=== PATIENT | female | born 1940 | race Caucasian/White ===

== ENCOUNTER 2016-11-01 07:28 | Observation (INO) | payer OTHER ==
[2016-11-01] MEDS ORDERED: BUPIVACAINE 0.5% 30 ML SDV ONE (07:34)
[2016-11-01 09:18] LABS: % IMMATURE GRANULYOCYTES 1.1 % (0.0-1.1); ABSOLUTE IMMATURE GRANULOCYTES 0.09 10^3/uL (0.00-0.10); ADD DIFF? NO; ADD MORPH? NO; ADD SCAN? NO; ATYPICAL LYMPHOCYTE FLAG 0 (0-99); FRAGMENT RBC FLAG 0 (0-99); HEMATOCRIT 35.2 % (38.0-47.0); HEMOGLOBIN 11.6 g/dL (12.6-16.3); LEFT SHIFT FLG 10 (0-99); LIPEMIA HEMOLYSIS FLAG 80 (0-99); MEAN CELL HEMOGLOBIN 32.4 pg (27.9-34.1); MEAN CELL VOLUME 98.3 fL (81.5-99.8); MEAN PLATELET VOLUME 10.6 fL (8.7-11.7); PLATELET CLUMPS FLAG 10 (0-99); PLATELET COUNT 338 10^3/uL (150-400); RED BLOOD CELL COUNT 3.58 10^6/uL (4.18-5.33); RED CELL DISTRIBUTION WIDTH 13.9 % (11.5-15.2)
[2016-11-01] MEDS ORDERED: LR 1,000 ML IV ONE (09:24)
[2016-11-01] MEDS ORDERED: LIDOCAINE 1% 5 ML SDV ID PRN (09:24)
[2016-11-01 09:39] LABS: ANION GAP 10 mEq/L (8-16); CALCIUM 10.2 mg/dL (8.5-10.4); CARBON DIOXIDE 21 mEq/l (22-31); CHLORIDE 111 mEq/L (97-110); CREATININE 2.2 mg/dL (0.6-1.0); GLOMERULAR FILTRATION RATE 22; GLUCOSE 92 mg/dL (70-100); SODIUM 142 mEq/L (134-144)
[2016-11-01] MEDS ORDERED: PROPOFOL 200 MG/20 ML VIAL ONE (09:41)
[2016-11-01] MEDS ORDERED: fentaNYL 100 MCG/2 ML INJ ONE (09:41)
[2016-11-01 09:42] LABS: POTASSIUM 6.4 mEq/L (3.5-5.2)
[2016-11-01] MEDS ORDERED: CEFAZOLIN 2 GM/DEXTROSE/100 ML BAG IV ONE (09:42)
[2016-11-01] MEDS ORDERED: ceFAZolin 2 GM/DEXTROSE 100 ML IV ONE (10:00)
[2016-11-01 10:27] LABS: POTASSIUM 6.4 mEq/L (3.5-5.2)
--- NOTE | 2016-11-01 10:32 | CPEKG ---
Heart Rate: 70 RR Interval: 857 P-R Interval: 140 QRSD Interval: 72 QT Interval: 380 QTC Interval: 410 P Mobile: 61 QRS Mobile: 37 T Wave Mobile: 39 EKG Severity - ABNORMAL ECG - EKG Impression: SINUS RHYTHM EKG Impression: PROBABLE LEFT ATRIAL ABNORMALITY EKG Impression: PROBABLE LEFT VENTRICULAR HYPERTROPHY EKG Impression: CONSIDER ANTERIOR INFARCT Electronically Signed By: Janel Garland 01-Nov-2016 17:07:12
[2016-11-01] MEDS ORDERED: SODIUM POLY SULF 15 GM/60 ML BOTTLE PO ONE ×2 (12:55→18:15)
[2016-11-01] MEDS ORDERED: D50W 25 GM/50 ML SYR IVP ONE (13:00)
[2016-11-01] MEDS ORDERED: NA BICARBONATE 50 MEQ/50 ML VIAL IV ONE ×2 (13:00→13:45)
[2016-11-01] MEDS ORDERED: INSULIN REGULAR HUMAN 100 UNIT/ML IVP ONE (13:49)
[2016-11-01] MEDS ORDERED: ONDANSETRON 4 MG/2 ML VIAL IVP PRN (13:50)
[2016-11-01] MEDS ORDERED: ALBUTEROL 60 PUFFS/8 GM MDI IH PRN (13:50)
[2016-11-01] MEDS ORDERED: ONDANSETRON DISINTEGRATING 4 MG TAB PO PRN (13:50)
[2016-11-01] MEDS ORDERED: ALBUTEROL 3 ML DEYVIAL IH PRN (13:50)
[2016-11-01] MEDS ORDERED: HYDROCODONE/APAP 5/325 TAB PO PRN (13:50)
[2016-11-01] MEDS ORDERED: ACETAMINOPHEN 325 MG TAB PO PRN (13:50)
[2016-11-01 15:20] LABS: INR 1.01 (0.83-1.16); PROTIME(PATIENT) 13.2 SEC (12.0-15.0)
[2016-11-01 15:25] LABS: ANION GAP 11 mEq/L (8-16); CALCIUM 10.1 mg/dL (8.5-10.4); CARBON DIOXIDE 22 mEq/l (22-31); CHLORIDE 110 mEq/L (97-110); GLOMERULAR FILTRATION RATE 24; GLUCOSE 185 mg/dL (70-100); MAGNESIUM 1.7 mg/dL (1.6-2.3); POTASSIUM 5.2 mEq/L (3.5-5.2); SODIUM 143 mEq/L (134-144)
[2016-11-01] MEDS ORDERED: SODIUM POLYSTYRENE SULF 454 GM POWDER PO ONE (18:03)
[2016-11-01] MEDS ORDERED: MAGNESIUM SULF 2 GM/WATER 50 ML IV ONE (18:03)
--- NOTE | 2016-11-01 18:17 | SOAPPROG ---
SOAP Progress Note Assessment/Plan: Assessment:Plan: Hyperkalemia Pre-op K = 6.4. Confirmed. Now down to 5.2 after IV Rx. Corrected easily with bicarb 100 mEq and D50 one amp. Did not give insulin or calcium or Kionex Underlying advance CKD K balance likely affected by chronic, frequent loose stool. This can result in bicarbonate wasting and K imbalance This could be related to mag oxide use or a side effect from her sertraline Will stop mag oxide Will replace Mag IV while in hospital Will consider use of different magnesium supplement like slomag once we see her response to the discontinuation of mag oxide If no better with the elimination of the magnesium, will need to change from sertaline to another type of SSRI. Loose stool and fecal incontinence is not uncommon with sertraline. Will give kionex powder tonight to prevent recurrence of the hyperkalemia This should not worsen GI symptoms as this does not contain sorbitol like the liquid form Labs again in morning If K rebounds, will need bicarbonate IV again in morning Discussed diet. Her only high-potassium food has been potatoes. We discussed preparation methods that would ventura-out or remove potassium prior to consuming Currently on renal diet with plans for OR tomorrow. Anesthesia had ordered LR concrete mixer loader truck mounted to OR for tomorrow. This should be changed to NS as LR contains some potassium 11/01/16 18:17 Objective: Vital Signs Temp Pulse Resp BP Pulse Ox 37.1 C 75 14 182/70 H 91 L 11/01/16 15:13 11/01/16 15:13 11/01/16 15:13 11/01/16 15:13 11/01/16 15:13 Laboratory Results 11/01/16 09:05 11/01/16 15:00 10/31/16 11/01/16 11/02/16 05:59 05:59 05:59 Intake Total 800 Balance 800 PT 13.2 SEC (12.0-15.0) 11/01/16 15:00 INR 1.01 (0.83-1.16) 11/01/16 15:00 ICD10 Worksheet Patient Problems: Problems Problem Status Onset Hyperkalemia Acute - ICD10 Problem Qualifiers (1) Hyperkalemia
[2016-11-01] MEDS ORDERED: hydrALAZINE 20 MG/ML VIAL IVP PRN (18:54)
--- NOTE | 2016-11-01 19:58 | GCON ---
[f rep st] CONSULTATION NEPHROLOGY CONSULTATION REASON FOR CONSULTATION: Hyperkalemia. ASSESSMENT: 1. Hyperkalemia. 2. Frequent loose stool. 3. 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 4. Hypertension. RECOMMENDATION: 1. Treat hyperkalemia acutely with 1 amp of D50 and in sodium bicarbonate 100 mEq IV. 2. Recheck potassium in 1 hour. 3. Keep n.p.o. in anticipation of surgery. 4. Discontinue magnesium oxide as this may be contributing to the patient's loose stool. 5. If patient has surgery rescheduled, plan to give Kionex tonight to ensure the potassium does not rebound. 6. Consider change from sertraline to another SSRI if her loose stools persist. HISTORY: The patient is a 76-year-old woman with stage 4/stage 5 chronic kidney disease who was scheduled to get a peritoneal dialysis catheter placed today. Her preoperative potassium was 6.4, and therefore the surgery has been postponed. I was called to help with the management of her hyperkalemia. I requested that the patient be given D50 as well as 2 amps of sodium bicarbonate. Followup labs have shown her potassium came down nicely to 5.2. The patient has a history of hyperkalemia with elevated reading in August of this year. She has been effectively controlled with dietary restriction. She denies recent intake of significant high potassium foods with the exception of potatoes. Her diet is somewhat affected by her use of Meals on Wheels, and so her food choices are not always her own. She does describe having loose stools for the last 7-8 months. She has 3-4 loose bowel movements every day. She is on bother magnesium oxide and sertraline. She has had no recent changes in her medications. She had a recent hospitalization down at [facility] for symptoms of seizure. With this, her blood pressure medications were reduced. She has history of status epilepticus back in July 2015 after placement of a left internal carotid artery stent in [place]. She had been discharged to home with plans to undergo a RLE stent when she was found unresponsive by a friend. She was flown to [facility] at that time and was found to be in status. She had meningitis. Her course was complicated by [place], IKRT, CHF. She has issues with short-term memory loss. PAST MEDICAL HISTORY: 1. Atrophic Right kidney. 2. Hypertension since 1999 3. Chronic kidney disease since 1999, stage 4/5 4. Anemia. 5. COPD. 6. Depression. 7. Hyperlipidemia. 8. Hypothyroidism. 9. Low magnesium. 10. Seizure disorder 11. PVD with occluded Left common iliac, carotid and RLE disease 12. CAD with history of [place] 13.. CHF 14. Hyperkalemia 15. Anemia 16. GERD 17. Abnormal breast biopsy, treated by Dr. Elena with tamoxifen 18. Diverticulitis 2005 19. Paroxysmal Afib 20. History of meningitis 21.. History of KIRT 07/2015 associated with episode of status epilepticus PAST SURGICAL HISTORY: Tubal Tonsils and adenoids Appendectomy D&C KEVAN BSO Right Knee x 4 Left Knee Left ICA Stent OUTPATIENT MEDICATIONS: Amlodipine 5 mg daily, Eliquis 2.5 mg twice daily, Coreg 12.5 mg twice daily, vitamin D3 5000 international units daily, Plavix 75 mg daily, docusate twice daily, Advair 2 twice daily, Keppra 750 mg twice daily , Synthroid 100 mcg daily, magnesium oxide twice daily, omeprazole 20 mg daily, Zoloft 50 mg daily, and simvastatin 5 mg daily. ALLERGIES: Erythromycin, theophylline, lovastatin, tetracycline, pravastatin. FAMILY AND SOCIAL HISTORY: Noncontributory. 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 Former smoker REVIEW OF SYSTEMS: Negative except for that including the History of Present Illness. PHYSICAL EXAMINATION: VITAL SIGNS: Temp 37.1, heart rate 75, respirations 14, blood pressure 182/70, saturating 91% on room air. APPEARANCE: No apparent distress. She is a thin elderly female, appearing her stated age in no apparent distress. Sitting up in bed. HEENT: Atraumatic, normocephalic. NECK : Unremarkable. She has a 2/6 murmur, transmitted into both carotids bilaterally. HEART: Regular with no rubs or gallops. LUNGS: Completely clear to auscultation. ABDOMINAL: Positive bowel sounds. Soft, nontender. No rebound or guarding. No obvious bruits noted. EXTREMITIES: Free of edema. SKIN: Free of rashes. LABORATORY DATA: A BUN of 50 and a creatinine of 2. Potassium down to 5.2 as described. ASSESSMENT: Hyperkalemia. The patient describes frequent loose stools. She has advanced chronic kidney disease. This combination of things may have resulted in her developing a potassium imbalance. She corrected quickly with the administration of 2 amps of bicarbonate. I suspect her gastrointestinal symptoms have resulted in chronic bicarbonate losses and may be contributing to this problem. Her use of magnesium oxide, docusate as well as Zoloft may be contributing to her loose stool. I will start with discontinuation of her magnesium oxide. It does not seem like she needs docusate at the present time either, but that currently is not on her med list so I will not make adjustments to that. Zoloft (sertraline) does carry the risk of developing loose stool as well as fecal incontinence. She has been on this nursing home. Nonetheless, this could be causing her symptoms. If her gastrointestinal symptoms do not improve with discontinuation of the magnesium supplementation, then I would consider changing her to a different SSRI. If her gastrointestinal symptoms do improve with discontinuation of the magnesium oxide and if she continues to have indications for ongoing magnesium supplementation, then one could consider using a different magnesium supplementation such as Slow-Mag that might be more tolerable. She has had high potassium. She may rebound. If she rebounds in the morning, this could further disrupt her planned surgery. I will give her some powdered Kionex tonight as this may help prevent this issue. Kionex powder may also have a somewhat constipatory effect which might also be beneficial for this patient. I would not use Kionex liquid due to the sorbitol contained in this compound which would only induce more problems with her GI system. Her magnesium supplement is going to be discontinued. We will give her IV magnesium tonight. We will deal with her chronic low magnesium issues as an outpatient. Again, if she is not having loose stools this may also help promote normal electrolyte balance. Lactated Ringer's was ordered full fashioned garment knitter to the operating room. Even though, this contains a trivial amount of potassium, I would simply use normal saline for patients with chronic kidney disease or end-stage renal disease when undergoing surgical procedures. I changed her fluid orders to normal saline because of this. She is on a low-potassium diet. She does not describe eating much in the way of high potassium foods with the exception of potatoes. We discussed preparation methods that can lead to the potassium and remove it from foods like potatoes prior to consumption. This is discussed with her and her son. She has been n.p.o. since early this morning. I suspect that is contributing to her current high blood pressure. We will see how she responds to resumption of those medications overnight. She has experienced worsening renal function when her BP has been over-corrected in the past. This is not expected given the nature and severity of her vascular disease. Goal BP's were discussed with the patient and her son Other dietary issues were discussed in detail. Her son is working with her to make sure she has good nutritional status going into her need for dialysis. Copy requested to: Dr. Kathi Amaya /[id number]/MODL MTDD
[2016-11-01] MEDS: levETIRAcetam 250 MG TAB PO SCH (20:11)
[2016-11-01] MEDS: amLODIPine BESYLATE 5 MG TAB PO SCH (20:12)
[2016-11-01] MEDS: CARVEDILOL 6.25 MG TAB PO SCH (20:13)
[2016-11-01] MEDS: DOCUSATE SODIUM 100 MG CAP PO SCH (20:18)
[2016-11-01] MEDS: SIMVASTATIN 5 MG PO SCH (20:18)
[2016-11-01] MEDS ORDERED: MAGNESIUM OXIDE 400 MG TAB PO SCH (21:00)
[2016-11-01] MEDS: FLUTICASONE/SALMETER 250/50MCG DISKUS IH SCH (22:46)
[2016-11-02] MEDS: LEVOTHYROXINE 100 MCG TAB PO SCH (04:59)
[2016-11-02 05:31] LABS: ANION GAP 8 mEq/L (8-16); CALCIUM 9.5 mg/dL (8.5-10.4); CARBON DIOXIDE 24 mEq/l (22-31); CHLORIDE 108 mEq/L (97-110); GLOMERULAR FILTRATION RATE 24; GLUCOSE 89 mg/dL (70-100); POTASSIUM 4.7 mEq/L (3.5-5.2); SODIUM 140 mEq/L (134-144)
[2016-11-02] MEDS: FLUTICASONE/SALMETER 250/50MCG DISKUS IH SCH (09:20)
[2016-11-02] MEDS: PANTOPRAZOLE SODIUM 40 MG TAB PO SCH (09:25)
[2016-11-02] MEDS: levETIRAcetam 250 MG TAB PO SCH ×2 (09:25→21:39)
[2016-11-02] MEDS: SERTRALINE HCL 50 MG TAB PO SCH (09:25)
[2016-11-02] MEDS: amLODIPine BESYLATE 5 MG TAB PO SCH (09:26)
[2016-11-02] MEDS: CARVEDILOL 6.25 MG TAB PO SCH ×2 (09:26→21:40)
[2016-11-02] MEDS ORDERED: FLUTICASONE/SALMETER 250/50MCG DISKUS IH PRN (09:36)
[2016-11-02] MEDS: CHOLECALCIFEROL VIT D3 2,000 UNITS TAB/CAP PO SCH (10:00)
[2016-11-02] MEDS: DOCUSATE SODIUM 100 MG CAP PO SCH ×2 (10:01→21:42)
[2016-11-02] MEDS: SIMVASTATIN 5 MG PO SCH (10:01)
--- NOTE | 2016-11-02 10:56 | GHP ---
[f rep st] HISTORY AND PHYSICAL DATE OF ADMISSION: 11/01/2016 CHIEF COMPLAINT: Hyperkalemia. HISTORY OF PRESENT ILLNESS: A 76-year-old female who was noted to be hyperkalemic at the time of a planned operation to place a peritoneal dialysis catheter. Because of the hyperkalemia, the surgery was cancelled, and she was placed for admission. She has no complaints. Her significant recent [facility] history shows a recent hospitalization at [facility] for problems of CHF, AFib, meningitis, and pneumonia. Renal failure perhaps was a part of this diagnosis, and as a result, she was sent f or a peritoneal dialysis catheter. She has recently had no fever, chills, sweats, cough, shortness of breath, chest pain, nausea, vomiting, dizziness, weakness. PAST MEDICAL HISTORY: Positive for asthma, COPD, renal failure, hypertension, and paroxysmal atrial fibrillation, along with GERD. PAST SURGICAL HISTORY: Right knee surgery x4, left knee surgery x1. She has also had an appendecto my, laparoscopic cholecystectomy, T and A, KEVAN, and D and C. ALLERGIES: She reports numerous allergies to antibiotics, but she could not be specific. She also said she was allergic to penicillin, which was tested at [facility], and she was found n ot to be allergic to penicillin. CURRENT MEDICATIONS: Noted in the EMR and reconciled. REVIEW OF SYSTEMS: A 10-point review of systems is otherwise entirely negative, except as noted in the HPI. SOCIAL HISTORY: The patient lives alone and independently in [place]. Tobacco: She is currently not smoking cigarettes but smoked for 63 pack-years total and stopped at the age of 75 at the time o f her admission to [facility]. FAMILY HISTORY: Positive for breast cancer, with her mother passing from complications of breast ca ncer. Her father of advanced age and did not have early coronary disease. PHYSICAL EXAMINATION: GENERAL: This is an elderly, pleasant female whom I am seeing on [facility] gical valente in the PCU. VITAL SIGNS: She is significantly hypertensive, afebrile. Monitor shows sinus rhythm without ectop y, approximately 70-80. She is afebrile and has normal oxygenation. HEENT: WNL. NECK: Supple without signs of meningismus. LUNGS: Clear to P and A without wheezing or rales. HEART: Singular S1 and S2. Soft ASHLEY along the LSB can be heard. No AI is noted. ABDOMEN: Thin, normal bowel sounds, no masses, tenderness, or organomegaly. EXTREMITIES: No edema, cyanosis, clubbing. NEUROLOGIC: Symmetric and normal. LABORATORY VALUES: Significant for hyperkalemia with potassium 6.4. ECG reviewed by myself shows s inus rhythm at approximately 78 and is otherwise normal without acute changes. There are no peaked T waves noted. Because of the hyperkalemia, the patient was given D50 and insulin, along with Kayexalate. The pota ssium subsequently fell to a normal range nicely. ASSESSMENT: 1. Acute hyperkalemia of undetermined etiology. As noted, she was given D50, insulin, and Kayexala te, and the potassium fell to a normal range. There were no complications, no peaked T waves noted on her initial ECG. 2. Chronic kidney disease with end-stage renal disease. The patient is scheduled for peritoneal di alysis catheter. She will be placed n.p.o. after midnight and prepared for a probable placement of this catheter tomorrow. 3. Hypertension. She is quite significantly hypertensive, and I have restarted her usual antihyper tensive medications, along with hydralazine p.r.n. for systolic blood pressure greater than 160. Fiona moy is experiencing no chest pain or signs of CHF as a result. 4. Chronic obstructive pulmonary disease by history with a 63 pack-year history of tobacco. The pa tietamia stopped just this year at the time of her hospitalization at [facility]. Although she personally reports that she has had no problems of a regular cough, she does have a history of bronchospasm, per her medications. These medicines will be restarted. 5. History of paroxysmal atrial fibrillation from medical records at [facility]. She h as been on Eliquis anticoagulation as a result. This will be held in preparation for the placement of her diagnostic catheter and then restarted. 6. Chronic medical problems of gastroesophageal reflux disease and arthritis of her hands. PLAN: Preoperatively for placement of peritoneal dialysis catheter tomorrow, she will made n.p.o. Her potassium has been normalized, as noted above. Blood pressure will be treated in the usual [facility] ion with p.r.n. doses of hydralazine. CODE STATUS: Full. DEEP VENOUS THROMBOSIS PROPHYLAXIS: Eliquis. Full-dose anticoagulation is being held at this time, and she will be placed on SCDs temporarily. BILLING: The patient will be placed in observation status. Should she require further hospitalizat ion, she will be changed to inpatient. TIME REQUIRED FOR THIS ADMISSION: 55 minutes. Note that medical records have been requested from [facility]. /[id number]/MODL
--- NOTE | 2016-11-02 11:15 | SOAPPROG ---
SOAP Progress Note Assessment/Plan: Assessment/Plan: 76 Y F c CRF. Hyperkalemia. Surgery postponed yesterday for hyperkalemia. K+ now 4.7 this am. Appreciate renal and IM input. Cntinue NPO and to OR later today for laparoscopic PD catheter placement. Questions answered. Risks and options previously discussed. S: no complaints. O: alert, nad mmm ctab rrr abd soft, +scars 11/02/16 11:13 Objective: Vital Signs Temp Pulse Resp BP Pulse Ox 36.9 C 72 14 140/55 H 90 L 11/02/16 11:09 11/02/16 11:09 11/02/16 11:09 11/02/16 11:09 11/02/16 11:09 Laboratory Results 11/01/16 09:05 11/02/16 04:38 11/01/16 11/02/16 11/03/16 05:59 05:59 05:59 Intake Total 1200 Balance 1200 PT 13.2 SEC (12.0-15.0) 11/01/16 15:00 INR 1.01 (0.83-1.16) 11/01/16 15:00 ICD10 Worksheet Patient Problems: Problems Problem Status Onset Hyperkalemia Acute
[2016-11-02] MEDS ORDERED: NS 1,000 ML IV ONE (12:00)
--- NOTE | 2016-11-02 12:33 | SOAPPROG ---
SOAP Progress Note Assessment/Plan: Assessment: CKD 4-5 hyperkalemia improved Plan: PD cath placement today hopefully home post op follow up with Dr. Archuleta 11/02/16 12:31 Subjective: denies pain nausea vomiting cp or SOB spirits good Objective: Vital Signs Temp Pulse Resp BP Pulse Ox 36.9 C 72 14 140/55 H 90 L 11/02/16 11:09 11/02/16 11:09 11/02/16 11:09 11/02/16 11:09 11/02/16 11:09 Laboratory Results 11/01/16 09:05 11/02/16 04:38 11/01/16 11/02/16 11/03/16 05:59 05:59 05:59 Intake Total 1200 Balance 1200 PT 13.2 SEC (12.0-15.0) 11/01/16 15:00 INR 1.01 (0.83-1.16) 11/01/16 15:00 Physical Exam - Physical Exam General Appearance: alert Respiratory: No rales, No rhonchi, No wheezing Cardiac/Chest: regular rate, rhythm, No edema Abdomen: normal bowel sounds, non-tender, soft, No distended Skin: warm/dry Extremities: No swelling Neuro/Psych: alert, normal mood/affect, oriented x 3 ICD10 Worksheet Patient Problems: Problems Problem Status Onset Hyperkalemia Acute
[2016-11-02] MEDS ORDERED: LR 1,000 ML IV ONE (13:30)
[2016-11-02] MEDS ORDERED: ceFAZolin 2 GM/DEXTROSE 100 ML IV ONE (13:30)
[2016-11-02] MEDS ORDERED: LIDOCAINE 2% 5 ML SDV ONE (14:42)
[2016-11-02] MEDS ORDERED: ONDANSETRON 4 MG/2 ML VIAL ONE (14:42)
[2016-11-02] MEDS ORDERED: PROPOFOL 200 MG/20 ML VIAL ONE (14:42)
[2016-11-02] MEDS ORDERED: fentaNYL 100 MCG/2 ML INJ ONE (14:42)
[2016-11-02] MEDS ORDERED: ROCURONIUM 50 MG/5 ML VIAL ONE (14:43)
[2016-11-02] MEDS ORDERED: SUGAMMADEX SODIUM 200 MG/2 ML VIAL IVP ONE (14:43)
[2016-11-02] MEDS ORDERED: DEXAMETHASONE 4 MG/ML VIAL ONE (14:43)
[2016-11-02] MEDS ORDERED: hydrALAZINE 20 MG/ML VIAL ONE (16:23)
--- NOTE | 2016-11-02 16:47 | HOSPPROG ---
Hospitalist Progress Note Assessment/Plan: 76 yo female admitted for peritoneal dialysis catheter, found to be hyperkalemic , treated. Today received dialysis catheter and post noted to be hypertensive. -hyperkalemia: resolved -hypertension: will receive hydralazine and continue to treat -CKD: stable -h/o PAF: will restart eliquis tomorrow Subjective: no complaints Objective: Vital Signs Temp Pulse Resp BP Pulse Ox 36.6 C 76 13 152/54 H 95 11/02/16 16:07 11/02/16 16:07 11/02/16 16:40 11/02/16 16:39 11/02/16 16:39 Laboratory Results 11/01/16 09:05 11/02/16 04:38 11/01/16 11/02/16 11/03/16 05:59 05:59 05:59 Intake Total 1200 400 Output Total 10 Balance 1200 390 PT 13.2 SEC (12.0-15.0) 11/01/16 15:00 INR 1.01 (0.83-1.16) 11/01/16 15:00 - Time Spent With Patient Time Spent with Patient: greater than 35 minutes Time Spent with Patient: Greater than 35 minutes spent on this patients care, greater than 50% of time spent counseling, educating, and coordinating care regarding the above mentioned plan. - Pending Discharge Pending Discharge Within 24 Hours: Yes Pending Discharge Date: 11/03/16 Pending Discharge Time: 11:00 - Physical Exam Constitutional: no apparent distress Eyes: PERRL Ears, Nose, Mouth, Throat: moist mucous membranes, hearing normal Cardiovascular: regular rate and rhythym, no murmur, rub, or gallop Respiratory: no respiratory distress, no rales or rhonchi, clear to auscultation Gastrointestinal: normoactive bowel sounds, soft, non-tender abdomen, no palpable masses Skin: warm Musculoskeletal: full muscle strength Neurologic: AAOx3, CN II-XII Intact Psychiatric: interacting appropriately ICD10 Worksheet Patient Problems: Problems Problem Status Onset Hyperkalemia Acute
--- NOTE | 2016-11-02 17:34 | POSTOPPROG ---
Post Op Note Date of Operation: 11/02/16 Surgeon: Felix Amaya Foot Miter Operator: Joni Saenz Anesthesiologist: Dr Gómez Anesthesia: GET(General Endotracheal) Pre-op Diagnosis: renal failure Post-op Diagnosis: same Indication: renal failure Procedure: lap PD cath placement Inf/Abcess present in the surg proc area at time of surgery?: No Depth: Organ Space EBL: Minimal
[2016-11-02] MEDS: ACETAMINOPHEN/CODEINE 300/30MG TAB PO PRN (18:02)
[2016-11-03] MEDS: LEVOTHYROXINE 100 MCG TAB PO SCH (05:47)
[2016-11-03 07:31] VITALS: O2SAT 90
--- NOTE | 2016-11-03 08:49 | SOAPPROG ---
SOAP Progress Note Assessment/Plan: Assessment: VS STABLE/ AFEBRILE/ WOUND OK/ NAUSEA RESOLVED/ ABD SOFT WITH BS Plan:ADVANCE DIET AND HOME IF TOLERATED 11/03/16 08:48 Objective: Vital Signs Temp Pulse Resp BP Pulse Ox 36.9 C 75 18 151/59 H 90 L 11/03/16 07:30 11/03/16 07:30 11/03/16 07:30 11/03/16 07:30 11/03/16 07:30 Laboratory Results 11/01/16 09:05 11/02/16 04:38 11/02/16 11/03/16 11/04/16 05:59 05:59 05:59 Intake Total 1200 600 Output Total 10 Balance 1200 590 PT 13.2 SEC (12.0-15.0) 11/01/16 15:00 INR 1.01 (0.83-1.16) 11/01/16 15:00 ICD10 Worksheet Patient Problems: Problems Problem Status Onset Hyperkalemia Acute
[2016-11-03] MEDS ORDERED: amLODIPine BESYLATE 5 MG TAB PO SCH ×2 (09:00→09:45)
--- NOTE | 2016-11-03 09:06 | SOAPPROG ---
SOAP Progress Note Assessment/Plan: Assessment:Plan: Hyperkalemia-resolved GI-loose stools resolved -keep off Mag oxide -consider alternative supplement as outpatient if she remains symptom free CKD-stable Anemia-follow s/p PD catheter-per Dr. Amaya Dispo-likely home today 11/03/16 09:04 Subjective: better overnite Objective: Vital Signs Temp Pulse Resp BP Pulse Ox 36.9 C 75 18 151/59 H 90 L 11/03/16 07:30 11/03/16 07:30 11/03/16 07:30 11/03/16 07:30 11/03/16 07:30 Laboratory Results 11/01/16 09:05 11/02/16 04:38 11/02/16 11/03/16 11/04/16 05:59 05:59 05:59 Intake Total 1200 600 Output Total 10 Balance 1200 590 PT 13.2 SEC (12.0-15.0) 11/01/16 15:00 INR 1.01 (0.83-1.16) 11/01/16 15:00 Physical Exam - Physical Exam General Appearance: alert, no apparent distress, thin EENT: normal ENT inspection Neck: normal inspection Respiratory: lungs clear, normal breath sounds, No respiratory distress Cardiac/Chest: regular rate, rhythm, systolic murmur Abdomen: normal bowel sounds, other (PD catheter unremarkable) Extremities: No swelling ICD10 Worksheet Patient Problems: Problems Problem Status Onset Hyperkalemia Acute - ICD10 Problem Qualifiers (1) Hyperkalemia
[2016-11-03 10:03] LABS: ANION GAP 10 mEq/L (8-16); CALCIUM 9.1 mg/dL (8.5-10.4); CARBON DIOXIDE 22 mEq/l (22-31); CHLORIDE 106 mEq/L (97-110); CREATININE 2.3 mg/dL (0.6-1.0); GLOMERULAR FILTRATION RATE 21; GLUCOSE 95 mg/dL (70-100); POTASSIUM 4.7 mEq/L (3.5-5.2); SODIUM 138 mEq/L (134-144)
[2016-11-03] MEDS: levETIRAcetam 250 MG TAB PO SCH (10:03)
[2016-11-03] MEDS: DOCUSATE SODIUM 100 MG CAP PO SCH (10:04)
[2016-11-03] MEDS: SERTRALINE HCL 50 MG TAB PO SCH (10:04)
[2016-11-03] MEDS: PANTOPRAZOLE SODIUM 40 MG TAB PO SCH (10:04)
[2016-11-03] MEDS: CARVEDILOL 6.25 MG TAB PO SCH (10:04)
[2016-11-03] MEDS: CHOLECALCIFEROL VIT D3 2,000 UNITS TAB/CAP PO SCH (10:05)
[2016-11-03] MEDS: SIMVASTATIN 5 MG PO SCH (10:09)
[2016-11-03] MEDS: ACETAMINOPHEN/CODEINE 300/30MG TAB PO PRN ×2 (10:13→12:24)
[2016-11-03 11:32] VITALS: BP 139/57; PULSE 66; RESP 16; TEMP 98
--- NOTE | 2016-11-03 13:20 | GDS ---
[f rep st] DISCHARGE SUMMARY ADMISSION DIAGNOSES: Known acute diagnoses on this admission: 1. Acute hyperkalemia, now resolved. 2. Hypertension, moderate severity, without end-organ dysfunction. 3. Chronic kidney disease with end-stage renal disease, status post peritoneal dialysis catheter on this admission. 4. Paroxysmal atrial fibrillation with Eliquis anticoagulation, stable. CHRONIC DIAGNOSES: 1. Chronic obstructive pulmonary disease with a [id number] history of tobacco with bronchospasm chronically. 2. Gastroesophageal reflux disease. 3. Arthritis of her hands. CONSULTATIONS: Nephrology, and General Surgery. PROCEDURES: A peritoneal dialysis catheter was placed on 11/[address] Amaya without difficulty. HOSPITAL COURSE: A 76-year-old female, who was initially presented for a peritoneal dialysis catheter, was found to be hyperkalemic and hypertensive. The surgery was initially delayed, and she was treated for her hyperkalemia with Kayexalate, D50 insulin, and her potassium fell nicely. Blood pressure was moderately elevated, her home medications were restarted, and her blood pressure fell to an acceptable range. The patient also had a history of electrolyte disorders and had been taking magnesium supplement replacement. The magnesium per Nephrology was giving her diarrhea and causing electrolyte disorders, thus, a magnesium supplementation was stopped. She was also counseled on low potassium foods. Note also she is taking Zoloft, which can cause stool incontinence and stool urgency. DISCHARGE MEDICATIONS: Stopped medications are magnesium oxide. Continued medications are Zocor 5 mg daily, Zoloft 50 mg daily, Plavix 75 mg daily, omeprazole 20 mg daily, Synthroid 100 mcg daily. Keppra 750 mg p.o. b.i.d., Eliquis 2.5 mg b.i.d., vitamin D3 5000 International Units daily, amlodipine 5 mg daily, Coreg 12.5 mg b.i.d., Colace 100 mg p.o. b.i.d., Advair 115/21 mcg inhaler 2 puffs b.i.d. PLAN: Patient will be discharged to home, she has the assistance of her son, Cuauhtemoc. Her followup will be in approximately [address] Bonilla. She is to check her blood pressure on a regular basis. He desires a blood pressure of approximately 130 to 140 systolic. Patient's PCP are Dr. Mirtha Mcmahon and Dr. Harry Bonilla. Time: Discharged required 45 minutes > 50% to cemetery counselor and coordinate care /[id number]/MODL MTDD
--- NOTE | 2016-11-04 20:43 | GOP ---
[f rep st] OPERATIVE REPORT DATE OF OPERATION: 11/02/2016 SURGEON: Felix Amaya MD CUSTOMER SUPPORT AGENT: TRA Shaw ANESTHESIOLOGIST: Les Gómez MD. PREOPERATIVE DIAGNOSIS: Chronic renal failure. POSTOPERATIVE DIAGNOSIS: Chronic renal failure. PROCEDURE PERFORMED: Laparoscopic peritoneal dialysis catheter. FINDINGS: Patient with excellent flow of the catheter. DESCRIPTION OF PROCEDURE: Patient was taken to the operating room, where she received a satisfactor y general endotracheal anesthesia by Dr. Gómez. She was placed in supine position and prepped and d raped in the usual sterile fashion. A left periumbilical incision was made and dissection carried d own to the fascia. Veress needle was inserted. Pneumoperitoneum was established. Trocar was intro duced. Laparoscope introduced. Good visualization was obtained. A 2nd trocar was placed in the le ft lower quadrant under direct vision. A [place] catheter was then passed through the periumbilic al catheter down and placed in the depths of the pelvis. The trocar was then removed. The fascia w as closed over the Dacron pledget with 0 Vicryl sutures, and wound was infiltrated with 0.5% Marcain e. Position appeared to be excellent. The 2nd trocar was removed, and the end of the PD catheter w as brought out through that incision, burying the 2nd Dacron cuff. 450 cc of saline was then instil led into the abdomen. The upper incision was closed with 3-0 Vicryl for the subcu, wound was infilt rated with 0.5% Marcaine, and skin was closed with 4-0 Monocryl subcuticular stitch. The catheter f low was then reversed and returned over 400 cc of the fluid, and that was discontinued. It was then attached to its permanent attachment, and the wounds were dressed. She tolerated the procedure wel l and was taken to the recovery room in good condition. No complications. Copy requested to: Dr. Kathi Archuleta /[id number]/[id number]
== END 2016-11-03 14:50 | disposition home or self-care (01) ==
LOC: FSGY 07:28 → F2W 12:25
PROVIDERS: ADMIT Surgery; ATTEND Internal Medicine Pulmonary Disease
PROC: 0WHG43Z Insertion of Infusion Device into Peritoneal Cavity, Percutaneous Endoscopic Approach (ICD-10-PCS; principal; 2016-11-01)
DX: E87.5 Hyperkalemia (principal); N18.9 Chronic kidney disease, unspecified; I12.9 Hypertensive chronic kidney disease with stage 1 through stage 4 chronic kidney disease, or unspecified chronic kidney disease; R19.7 Diarrhea, unspecified; T47.1X5A Adverse effect of other antacids and anti-gastric-secretion drugs, initial encounter; I48.0 Paroxysmal atrial fibrillation; J44.9 Chronic obstructive pulmonary disease, unspecified; K21.9 Gastro-esophageal reflux disease without esophagitis; M19.041 Primary osteoarthritis, right hand; M19.042 Primary osteoarthritis, left hand; Z87.891 Personal history of nicotine dependence; Z79.01 Long term (current) use of anticoagulants; I25.2 Old myocardial infarction; D64.9 Anemia, unspecified
CPT/HCPCS: 49324; 93005; 97116; 97161; 97165; 97530; C1750; G0378; G8978; G8979; G8987; G8988; J0360; J1100; J2405; J2704; J3010; J0690; J1642